=== PATIENT | female | born 1930 | race Caucasian/White ===

== ENCOUNTER 2016-08-14 14:56 | Emergency (ER) | payer OTHER ==
[~2016-08-14] VITALS: Ht 163.8 cm; Wt 75.7 kg
[2016-08-14 15:00] VITALS: Ht 163.8 cm; Wt 75.7 kg
[2016-08-14] MEDS ORDERED: ERGO500037 PO (15:27)
[2016-08-14] MEDS ORDERED: METO50TA7 PO (15:27)
[2016-08-14] MEDS ORDERED: TELM80TA PO (15:27)
[2016-08-14] MEDS ORDERED: MULT-506 PO (15:27)
[2016-08-14] MEDS ORDERED: LEVO88TA3 PO (15:27)
[2016-08-14 15:46] LABS: BASO % 0.4 %; BASO ABS # 0.03 K/uL (0-0.2); COMPLETE YES; EOS % 5.2 %; HEMATOCRIT 43.9 % (37-47); IG% 0.6 %; LYMPH % 15.1 %; LYMPH ABS # 1.26 K/uL (1.2-3.4); MEAN CELL VOLUME 92.4 fL (80-100); MEAN CORPUSCULAR HEMOGLOBIN 30.1 pg (25-34); MEAN CORPUSCULAR HGB CONC 32.6 g/dl (32-36); MEAN PLATELET VOLUME 11.5 fL (7.4-10.4); MONO % 13.2 %; NEUT % 65.5 %; PLATELET COUNT 280 K/uL (130-400); RED BLOOD COUNT 4.75 M/uL (4.2-5.4); WHITE BLOOD COUNT 8.33 K/uL (4.8-10.8)
[2016-08-14 16:06] LABS: BLOOD UREA NITROGEN 21 mg/dl (7-18); CALCIUM 9.3 mg/dl (8.5-10.1); CARBON DIOXIDE 30 mmol/L (21-32); CHLORIDE 106 mmol/L (98-107); CREATININE 0.98 mg/dl (0.60-1.20); GLUCOSE 139 mg/dl (70-99); SODIUM 143 mmol/L (136-145)
--- NOTE | 2016-08-14 16:38 | DIAGNOSTIC IMAGING REPORT ---
ULTRASOUND BILATERAL LOWER EXTREMITY VENOUS CLINICAL HISTORY: Leg pain and swelling. COMPARISON STUDY: No priors. TECHNIQUE: Real-time, grayscale, and color Doppler sonography of the deep veins of the right and left lower extremity was performed from the inguinal crease to the calf. Compression and augmentation were utilized. FINDINGS: There is no sonographic evidence of deep venous thrombosis identified in the right or left lower extremity. The common femoral, superficial femoral, and popliteal veins are patent and normally compressible bilaterally. The greater saphenous vein and the profunda femoris vein at the junction with the common femoral vein are clear in both legs. The visualized calf veins are patent bilaterally. IMPRESSION: There is no sonographic evidence of deep venous thrombosis identified in the right or left lower extremity. Electronically signed by: Ethan Cisneros M.D. 08/14/2016 4:37 PM Dictated Date/Time: 08/14/2016 4:37 PM
--- NOTE | 2016-08-14 17:08 | EMERGENCY ROOM VISIT NOTE ---
History Report prepared by Krystian: Mejia Torrez Under the Supervision of: Dr. Rodriguez Peralta M.D. First contact with patient: 15:04 Chief Complaint: LEG PAIN,LEG INJURY Stated Complaint: R LEG SWALLON History of Present Illness The patient is an 86 year old female who presents to the Emergency Room with complaints of worsening right lower leg pain beginning about a week ago. She states that her pain initially began in her calf, and has progressed into her thigh. She states that she has noticed ankle swelling as well. The patient states that she does not normally have swelling in her right leg, but often does in her left while in [employer] when coming from [place]. She was seen at [facility] for similar symptoms just prior to arrival and was referred to the ED for concern of possible blood clot. She has no history of blood clots. The patient denies any left leg pain, fever, vomiting, abdominal pain, back pain, chest pain, or SOB. She denies any recent prolonged travel. She is not on any blood thinners. The patient has a history of hypertension and hypothyroidism. She was a previous smoker but quit over 25 years ago. She notes that she has diverticulosis. Source of History: patient Onset: about a week ago Position: other (right lower leg and ankle) Quality: other (pain and swelling) Timing: worsening Associated Symptoms: No SOB, No abdominal pain, No back pain, No chest pain , No fevers, No vomiting Review of Systems See HPI for pertinent positives & negatives. A total of 10 systems reviewed and were otherwise negative. Past Medical & Surgical Medical Problems: (1) Diverticulosis (2) HTN (hypertension) (3) Hypothyroid Family History No pertinent family history stated. Social History Smoking Status: Former Smoker Housing Status: lives with family Current/Historical Medications Scheduled Ergocalciferol (Vitamin D 11055 Unit), 50,000 UNIT PO [id number] Levothyroxine Sodium (Levothyroxine Sodium), 1 TAB PO DAILY Metoprolol Succ (Toprol Xl) (Toprol-Xl), 50 MG PO BID Multivitamin (Multivitamin), 1 TAB PO DAILY Telmisartan (Micardis), 80 MG PO DAILY Allergies Coded Allergies: Unobtainable (Unverified Allergy, Severe, UNKNOWN BP MED, 08/14/16) PT STATES POSSIBLY LISINOPRIL/HCTZ AND AMLODIPINE Physical Exam Vital Signs Date Time Temp Pulse Resp B/P Pulse Ox O2 Delivery O2 Flow Rate FiO2 08/14/16 15:00 36.5 81 18 191/91 98 Room Air Physical Exam Constitutional: Vital signs reviewed. Eyes: Pupils are equal round reactive to light. Conjunctiva are noninjected. ENT: Pharynx is clear without erythema or exudate. Mucous membranes are moist. Neck supple without meningeal signs. Respiratory: Clear to auscultation bilaterally. Breath sounds are equal bilaterally. Cardiovascular: Regular rate and rhythm. No rubs or gallops. GI: Soft, nondistended and nontender. Bowel sounds are present. Musculoskeletal: No peripheral edema. Bilateral ankle edema. Mild tenderness to the right medial calf. No signs of cellulitis or infection to the right calf. Normal distal pulses in both feet. Integumentary: No cyanosis. Neurological: The patient is awake and alert. No focal deficits. Psychiatric: Normal affect. Medical Decision & Procedures ER Provider Diagnostic Interpretation: US results as stated below per my review and radiologist interpretation. ULTRASOUND BILATERAL LOWER EXTREMITY VENOUS TECHNIQUE: Real-time, grayscale, and color Doppler sonography of the deep veins of the right and left lower extremity was performed from the inguinal crease to the calf. Compression and augmentation were utilized. FINDINGS: There is no sonographic evidence of deep venous thrombosis identified in the right or left lower extremity. The common femoral, superficial femoral, and popliteal veins are patent and normally compressible bilaterally. The greater saphenous vein and the profunda femoris vein at the junction with the common femoral vein are clear in both legs. The visualized calf veins are patent bilaterally. IMPRESSION: There is no sonographic evidence of deep venous thrombosis identified in the right or left lower extremity. Electronically signed by: Ethan Cisneros M.D. Laboratory Results 08/14/16 15:35 Red Blood Count 4.75, Mean Corpuscular Volume 92.4, Mean Corpuscular Hemoglobin 30.1, Mean Corpuscular Hemoglobin Concent 32.6, Mean Platelet Volume 11.5, Neutrophils (%) (Auto) 65.5, Lymphocytes (%) (Auto) 15.1, Monocytes (%) (Auto) 13.2, Eosinophils (%) (Auto) 5.2, Basophils (%) (Auto) 0.4, Neutrophils # (Auto ) 5.46, Lymphocytes # (Auto) 1.26, Monocytes # (Auto) 1.10, Eosinophils # (Auto ) 0.43, Basophils # (Auto) 0.03 08/14/16 15:35 Test 08/14/16 15:35 08/14/16 16:03 White Blood Count 8.33 K/uL (4.8-10.8) Red Blood Count 4.75 M/uL (4.2-5.4) Hemoglobin 14.3 g/dL (12.0-16.0) Hematocrit 43.9 % (37-47) Mean Corpuscular Volume 92.4 fL (80-100) Mean Corpuscular Hemoglobin 30.1 pg (25-34) Mean Corpuscular Hemoglobin Concent 32.6 g/dl (32-36) Platelet Count 280 K/uL (130-400) Mean Platelet Volume 11.5 fL (7.4-10.4) Neutrophils (%) (Auto) 65.5 % Lymphocytes (%) (Auto) 15.1 % Monocytes (%) (Auto) 13.2 % Eosinophils (%) (Auto) 5.2 % Basophils (%) (Auto) 0.4 % Neutrophils # (Auto) 5.46 K/uL (1.4-6.5) Lymphocytes # (Auto) 1.26 K/uL (1.2-3.4) Monocytes # (Auto) 1.10 K/uL (0.11-0.59) Eosinophils # (Auto) 0.43 K/uL (0-0.5) Basophils # (Auto) 0.03 K/uL (0-0.2) RDW Standard Deviation 44.6 fL (36.4-46.3) RDW Coefficient of Variation 13.2 % (11.5-14.5) Immature Granulocyte % (Auto) 0.6 % Immature Granulocyte # (Auto) 0.05 K/uL (0.00-0.02) Anion Gap 7.0 mmol/L (3-11) Est Creatinine Clear Calc Drug Dose 39.9 ml/min Estimated GFR () 59.7 Estimated GFR (Non- 51.5 BUN/Creatinine Ratio 21.0 (10-20) Calcium Level 9.3 mg/dl (8.5-10.1) ED Course 1506: The patient was evaluated in room C3. A complete history and physical exam was performed. 1450: Upon reevaluation, the patient appeared to have improvement of her symptoms. I discussed dana's findings with the patient. She verbalized agreement of the treatment plan. She will follow up with her PCP. The patient was discharged home. Medical Decision This is an 86-year-old female presents with right leg pain. Differential diagnosis includes DVT, superficial thrombophlebitis, pulmonary embolism, strain , dependent edema, infection. I did perform a limited focused review of portions of the patient's old chart on the electronic medical record. The patient has had no prior visits to this hospital. I did evaluate the patient as noted above. The patient is presenting with right leg pain. She does not have any signs of infection or compartment syndrome. She has normal distal pulses. She has some very mild tenderness to the right medial calf. She does state she has a prior history of back issues and has had pain down her leg in the past but states it does not feel the same today. Since she had surgery in her back her back has not been bothering her. IV access was established. I did order and review the patient's blood work as noted in the electronic medical record. I did order Doppler ultrasounds of the lower extremities . I did review the images myself as well as the radiology report as described above. There is no evidence of DVT in either leg. I did discuss the test results with the patient. The cause of her leg pain is unclear at this time. She was advised to follow closely with her doctor and given return instructions as outlined below. Impression Primary Impression: Right leg pain Scribe Attestation The scribe's documentation has been prepared under my direct and personally reviewed by me in its entirety. I confirm that the note above accurately reflects all work, treatment, procedures, and medical decision making performed by me. Departure Information Dispostion Home / Self-Care Referrals No Doctor, Assigned (PCP) Forms HOME CARE DOCUMENTATION FORM, IMPORTANT VISIT INFORMATION Patient Instructions My [facility] Additional Instructions You have been examined and treated today on an emergency basis only. This is not a substitute for, or an effort to provide, complete comprehensive medical care. It is impossible to recognize and treat all injuries or illnesses in a single emergency department visit. It is therefore important that you follow up closely with your physician. Call as soon as possible for an appointment. Return for worsening symptoms or if you develop fever, vomiting, chest pain, shortness of breath, redness or swelling to your leg, change in temperature to your leg such as significantly increased warmth or coldness, numbness or weakness in your leg or any other concerning symptoms.
[2016-08-14 17:14] VITALS: BP 163/77; PULSE 83; TEMP 36.5; O2SAT 98
== END 2016-08-14 17:16 | disposition home or self-care (01) ==
LOC: C.EDB 15:00 → C.EDC 17:16
DX: M79.604 Pain in right leg (principal); K57.90 Diverticulosis of intestine, part unspecified, without perforation or abscess without bleeding; I10 Essential (primary) hypertension; E03.9 Hypothyroidism, unspecified; Z87.891 Personal history of nicotine dependence